=== PATIENT | male | born 1970 | race Caucasian/White ===

== ENCOUNTER 2018-05-13 12:10 | Emergency (ER) | payer OTHER ==
--- NOTE | 2018-05-13 13:08 | XRAY Report ---
Reason: Trauma Procedure Date: 05/13/2018 Accession Number: [id number] / [id number] Procedure: XR - Hand 3 View LT CPT Code: FULL RESULT: EXAM: LEFT HAND RADIOGRAPHY EXAM DATE: 05/13/2018 12:52 PM. CLINICAL HISTORY: Fall last night. Fourth finger pain. COMPARISON: None. TECHNIQUE: 3 views. FINDINGS: Bones: Acute mildly displaced avulsion fracture coronal plane, involving the anterior third base fourth middle phalanx with 2 mm offset. Joints: Normal. No subluxations. Soft Tissues: Marked edema centered at the fourth PIP joint. IMPRESSION: Large avulsion fracture base fourth middle phalanx. RADIA
--- NOTE | 2018-05-13 14:01 | ED Physician Documentation ---
PD HPI UPPER EXT INJURY - Stated complaint Stated Complaint: L HAND INJ - Chief complaint Chief Complaint: Ext Problem - History obtained from History obtained from: Patient, Family - History of Present Illness Location: Left, Finger (4th) Type of injury: Other (fall) Where injury occurred: Work Timing - onset: How many hours ago (2) Timing - details: Abrupt onset Pain level max: 5 Pain level now: 4 Improved by: Rest, Immobilization Worsened by: Moving, Palpating Associated symptoms: Swelling. No: Weakness, Numbness, Tingling Contributing factors: No: Anticoagulated Recently seen: Not recently seen - Additonal information Additional information: pt is right handed Review of Systems Musculoskeletal: denies: Neck pain, Back pain Neurologic: denies: Focal weakness, Numbness, Headache PD PAST MEDICAL HISTORY - Past Medical History Past Medical History: Yes Cardiovascular: Hypertension, High cholesterol Endocrine/Autoimmune: Type 2 diabetes - Past Surgical History Past Surgical History: Yes Ortho: Other - Present Medications Home Medications: Ambulatory Orders Medication Instructions Recorded Confirmed Blood Pressure Med 05/13/18 Glipizide 05/13/18 metFORMIN [Glucophage] 1,000 mg PO BIDWM 05/13/18 05/13/18 - Allergies Allergies/Adverse Reactions: Allergies Allergy/AdvReac Type Severity Reaction Status Date / Time No Known Drug Allergies Allergy Verified 05/13/18 12:34 - Social History Does the pt smoke?: No Smoking Status: Never smoker Does the pt drink ETOH?: Yes Does the pt have substance abuse?: No - Immunizations Immunizations are current?: Yes PD ED PE NORMAL - Vitals Vital signs reviewed: Yes - General General: Alert and oriented X 3, No acute distress - Derm Derm: Warm and dry - Extremities Extremities: Other (L hand - Diffuse swelling and tenderness about the fourth digit. Limited range of motion secondary to swelling. Neurovascularly intact. No wrist, forearm or elbow tenderness) - Neuro Neuro: Alert and oriented X 3 Results - Vitals Vitals: Vital Signs - 24 hr 05/13/18 05/13/18 12:32 14:47 Temperature 36.1 C L 36.0 C L Heart Rate 70 71 Respiratory 16 17 Rate Blood Pressure 123/84 H 120/85 H O2 Saturation 99 97 Oxygen O2 Source Room air - Rads (name of study) L hand xray Radiology: Prelim report reviewed, EMP read contemporaneously, See rad report ( Large avulsion fracture base fourth middle phalanx. ) PD MEDICAL DECISION MAKING - ED course Complexity details: reviewed results, re-evaluated patient, considered differential, d/w patient ED course: Patient is a 48-year-old male who presents with an avulsion fracture to the base of the fourth middle phalanx on the left hand. This is placed in a splint and ganesh taped. Patient tolerated well. Neurovascularly intact. No other acute injuries. Will continue supportive care and follow-up with his doctor. Will need repeat evaluation for full function of the finger after the swelling has decreased. Patient counseled regarding signs and symptoms for which I believe and urgent re-evaluation would be necessary. Patient with good understanding of and agreement to plan and is comfortable going home at this time This document was made in part using voice recognition software. While efforts are made to proofread this document, sound alike and grammatical errors may occur. L&I paperwork filled out. - Sepsis Event Vital Signs: Vital Signs - 24 hr 05/13/18 05/13/18 12:32 14:47 Temperature 36.1 C L 36.0 C L Heart Rate 70 71 Respiratory 16 17 Rate Blood Pressure 123/84 H 120/85 H O2 Saturation 99 97 Oxygen O2 Source Room air Departure - Departure Disposition: 01 Home, Self Care Clinical Impression: Finger fracture, left Qualifiers: Encounter type: initial encounter Finger: ring finger Fracture type: closed Phalanx: middle Fracture alignment: displaced Qualified Code(s): S62.625A - Displaced fracture of middle phalanx of left ring finger, initial encounter for closed fracture Condition: Good Instructions: ED Fx Finger Closed Follow-Up: your,doctor in 1 week [Other] Comments: Wear the splint until released by your doctor. Return if you worsen. You may use Motrin or Tylenol as needed for pain. You need a repeat examination in 1 week to ensure that this is healing correctly Forms: Activity restrictions Discharge Date/Time: 05/13/18 14:47
[2018-05-13 14:48] VITALS: BP 120/85
== END 2018-05-13 14:47 | disposition home or self-care (01) ==
LOC: ED 12:10
DX: S62.625A Displaced fracture of middle phalanx of left ring finger, initial encounter for closed fracture (principal); W19.XXXA Unspecified fall, initial encounter; Y99.0 Civilian activity done for income or pay
CPT/HCPCS: 99282; 99283

== ENCOUNTER 2023-02-07 10:55 | Outpatient (CLI) | payer OTHER ==
--- NOTE | 2023-02-07 15:05 | CT Report ---
PROCEDURE: ABDOMEN/PELVIS WO INDICATIONS: STONES TECHNIQUE: Noncontrast 5 mm thick sections acquired from the diaphragms to the symphysis. 5 mm coronal and sagi ttal reformats were then performed. For radiation dose reduction, the following was used: automated exposure control, adjustment of mA and/or kV according to patient size. COMPARISON: None. FINDINGS: Image quality: Excellent. Lung bases and heart: Normal heart size. Mild pericardial effusion. Right Kidney: 5 x 7 mm middle pole stone with a Hounsfield measurement of 430 Right Ureter: Unremarkable Left Kidney: 3 mm upper pole stone and 2 mm lower pole stone. No hydronephrosis. Left Ureter: Unremarkable Liver: No solid mass. Very mild diffuse hepatic steatosis. Gallbladder and biliary tree: No radiopaque stones or wall thickening. No biliary dilation. Spleen: No splenomegaly. Pancreas: No pancreatic ductal dilation. Adrenals: No adrenal nodule. Kidneys and ureters: No hydronephrosis. No renal cystic lesion which requires follow up. No solid mas s. Bowel and peritoneum: There is a mid small bowel loop present with mild to moderate diffuse bowel wal l thickening. Reference coronal image 28/6. The bowel is otherwise unremarkable. There is some fat st randing in the mesentery surrounding the vasa recta. Reference image 68/3. Lymph nodes: No central or retroperitoneal adenopathy. Vessels: No infrarenal aortic aneurysm. PELVIS Reproductive organs: Unremarkable. Bladder: No abnormal wall thickening, accounting for underdistension. Pelvic lymph nodes: No pelvic adenopathy by size criteria. Bones: No aggressive osseous abnormality. Other: No significant ventral or inguinal hernia. IMPRESSION: 1. Bilateral nonobstructing renal stones, the largest of which has a Hounsfield measurement of 430. 2. No hydronephrosis. 3. There is a single loop of small bowel with diffuse wall thickening, as well as stranding in the me senteric fat. Consider CT enterography for further evaluation of the small bowel. Reviewed by: Wes Cleary MD on 02/07/2023 3:03 PM PDT Approved by: Wes Cleary MD on 02/07/2023 3:03 PM PDT Station ID: [id number]
== END 2023-02-07 10:56 | disposition home or self-care (01) ==
LOC: DI 10:55
PROVIDERS: ATTEND Urology
DX: N20.0 Calculus of kidney (principal)

== ENCOUNTER 2023-08-14 11:00 | Outpatient (CLI) | payer OTHER | END 2023-08-14 11:15 | disposition home or self-care (01) | LOC: LAB.N 11:00 | PROVIDERS: ATTEND Family Medicine | DX: R30.0 Dysuria (principal) | CPT/HCPCS: 87086 ==

== ENCOUNTER 2023-08-16 08:56 | Outpatient (CLI) | payer OTHER ==
--- NOTE | 2023-08-16 11:04 | CT Report ---
PROCEDURE: ABDOMEN/PELVIS WO INDICATIONS: UROLITHIASIS TECHNIQUE: A CT scan of the abdomen and pelvis was performed without the use of intravenous contrast. Images we re recorded and evaluated at appropriate window settings. Reformats: coronal and sagittal. For radiat ion dose reduction, the following was used: automated exposure control, adjustment of mA and/or kV ac cording to patient size. COMPARISON: 02/07/2023. FINDINGS: Image quality: Excellent. Lung bases and heart: Small pericardial effusion, as before. Liver: No solid mass. There is a soft tissue density in the periportal region on current image 24/2 m easuring 3.0 x 2.1 cm. It is not significant changed from the previous study, and most likely represe nts a lobulated appearance of liver parenchymal tissue. Less likely is a large periportal lymph node. It is unchanged. Gallbladder and biliary tree: No radiopaque stones or wall thickening. No biliary dilation. Spleen: Mild splenomegaly. Spleen measures 13.5 cm. Pancreas: No pancreatic ductal dilation. Adrenals: No adrenal nodule. Kidneys and ureters: There is a 3 mm left ureteral stone at the level of L5 which is not resulting in hydroureter or hydronephrosis. There is a tiny nonobstructing left middle pole stone. There are 2 no nobstructing right renal stones, the larger of which measures 2 mm. There is no right hydronephrosis. Bowel and peritoneum: No bowel distension. No pathologic free fluid. Lymph nodes: No central or retroperitoneal adenopathy. Vessels: No infrarenal aortic aneurysm. PELVIS Reproductive organs: Unremarkable. Bladder: No wall thickness, accounting for underdistention. Pelvic lymph nodes: No pelvic adenopathy by size criteria. Bones: No aggressive osseous abnormality. Other: No significant ventral or inguinal hernia. IMPRESSION: 1. There is a nonobstructing 3 mm left ureteral stone at the level of L5. There is no resultant hydro nephrosis. 2. Bilateral tiny nonobstructing renal stones. 3. Small, stable pericardial effusion. 4. Mild splenomegaly. 5. A soft tissue density present on image 24/2 measuring 3.0 x 2.1 cm is not significantly changed. I t most likely represents a lobulated appearance of liver parenchymal tissue, less likely a large kisha portal lymph node. In this patient with mild splenomegaly, consider possible multiphase liver MRI to evaluate morphology of the liver and whether or not this soft tissue density is part of the liver parenchyma. Reviewed by: Wes Cleary MD on 08/16/2023 11:03 AM PST Approved by: Wes Cleary MD on 08/16/2023 11:03 AM PST Station ID: [id number]
== END 2023-08-16 08:57 | disposition home or self-care (01) ==
LOC: DI 08:56
PROVIDERS: ATTEND Family Medicine
DX: N20.9 Urinary calculus, unspecified (principal); R30.0 Dysuria; I31.39 Other pericardial effusion (noninflammatory); R16.1 Splenomegaly, not elsewhere classified; R93.5 Abnormal findings on diagnostic imaging of other abdominal regions, including retroperitoneum

== ENCOUNTER 2023-11-14 08:45 | Outpatient (CLI) | payer OTHER ==
--- NOTE | 2023-11-14 19:32 | Ultrasound Report ---
PROCEDURE: Soft Tissue Head or Neck INDICATIONS: Palpable mass TECHNIQUE: Real-time scanning was performed of the thyroid gland, with image documentation. COMPARISON: None FINDINGS: Right: Thyroid lobe measures 4.3 x 1.6 x 1.2 cm, and is homogeneous in echotexture. Left: Thyroid lobe measures 4.1 x 1.5 x 1.3 cm, and is homogenous in echotexture. Isthmus: 0.3 cm thick. No nodules identified IMPRESSION: Unremarkable ultrasound of the thyroid. If clinical symptoms persist, consider follow-up CT neck with contrast Reviewed by: Hunter Rehman MD on 11/14/2023 6:30 PM [place] Approved by: Hunter Rehman MD on 11/14/2023 6:30 PM [facility] Station ID: [id number]
== END 2023-11-14 08:46 | disposition home or self-care (01) ==
LOC: DI 08:45
PROVIDERS: ATTEND Nurse Practitioner Primary Care
DX: R22.1 Localized swelling, mass and lump, neck (principal)

== ENCOUNTER 2024-02-25 11:31 | Emergency (ER) | payer OTHER ==
[2024-02-25 13:19] LABS: BASOPHILS % (AUTO) 0.9 %; EOSINOPHILS # (AUTO) 0.1 10^3/uL (0.0-0.7); EOSINOPHILS % (AUTO) 1.5 %; HGB - HEMOGLOBIN 14.3 g/dL (14.0-18.0); LYMPHOCYTES # (AUTO) 1.2 10^3/uL (1.5-3.5); LYMPHOCYTES % (AUTO) 35.8 %; MEAN CORPUSCULAR HEMOGLOBIN 31.8 pg (27.0-31.0); MEAN CORPUSCULAR HGB CONC 33.3 g/dL (32.0-36.0); MEAN CORPUSCULAR VOLUME 95.6 fL (80.0-94.0); MEAN PLATELET VOLUME 10.5 fL (7.4-11.4); MONOCYTES # (AUTO) 0.3 10^3/uL (0.0-1.0); NEUTROPHILS # (AUTO) 1.7 10^3/uL (1.5-6.6); NEUTROPHILS % (AUTO) 52.8 %; PLT - PLATELET COUNT 189 10^3/uL (130-450); WHITE BLOOD COUNT 3.2 x10^3/uL (4.8-10.8)
[2024-02-25 13:39] LABS: ALBUMIN 4.5 g/dL (3.2-5.5); ALBUMIN/GLOBULIN RATIO 1.8 (1.0-2.2); BILIRUBIN,TOTAL 0.6 mg/dL (0.2-1.0); CALCIUM 9.8 mg/dL (8.5-10.3); CREATININE 0.9 mg/dL (0.6-1.3)
--- NOTE | 2024-02-25 15:20 | MRI Report ---
PROCEDURE: Brain WO INDICATIONS: RIGHT BODY NUMBNESS TECHNIQUE: Noncontrast axial T1 spin echo, axial T2 fast spin echo, sagittal and axial FLAIR, coronal T2 fast sp in echo, axial gradient echo, axial diffusion and ADC through the brain. COMPARISON: None. FINDINGS: Image quality: Excellent. CSF Spaces: Basal cisterns are patent. No extra-axial fluid collections. Ventricles are normal in size and shape. Brain: No intracranial masses or hemorrhage. Valdovinos/white matter interface is normal. Brainstem appe ars normal. Diffusion-weighted images demonstrate subtle restricted water diffusion focally in the l eft thalamus. Reference diffusion axial image 37 of series 12 and ADC map image 12 of series 13. This is consistent with a very small lacunar infarction of the left thalamus, possibly subacute based on very minimal signal abnormality on the diffusion-weighted sequence. There is associated trace signal abnormality on the T2 FLAIR axial sequence. There is mild to moderate small vessel ischemic change no urszula. No chronic ischemic insults. Normal intravascular flow voids are present. Skull and face: Calvarium has normal marrow signal. Orbits appear normal. Sinuses: Sinuses and mastoids are clear. IMPRESSION: 1. Tiny left thalamic lacunar infarct, possibly subacute. 2. Mild to moderate small vessel ischemic change. Reviewed by: Wes Cleary MD on 02/25/2024 3:19 PM PDT Approved by: Wes Cleary MD on 02/25/2024 3:19 PM PDT Station ID: [id number]
[2024-02-25] MEDS ORDERED: iohexoL-300 100 ML VIAL ONE (15:42)
[2024-02-25] MEDS: iohexoL-300 100 ML VIAL IVP ONE (16:24)
--- NOTE | 2024-02-25 16:41 | CT Report ---
PROCEDURE: Head WO INDICATIONS: R. FACIAL NUMBNESS TECHNIQUE: Noncontrast 4.5 mm thick angled axial sections acquired from the foramen magnum to the vertex. For r adiation dose reduction, the following was used: automated exposure control, adjustment of mA and/or kV according to patient size. COMPARISON: Brain MRI from the same date. FINDINGS: Image quality: Excellent. CSF spaces: Basal cisterns are patent. No extra-axial fluid collections. Ventricles are normal in size and shape. Brain: No midline shift. No intracranial masses or hemorrhage. Valdovinos-white matter interface is norm al. Intracranial carotid calcifications. Age-related volume loss and small vessel ischemic change. Skull and face: Calvarium and visualized facial bones are intact, without suspicious lesions. Sinuses: Visualized sinuses and mastoids are clear. IMPRESSION: No acute intracranial pathology. Reviewed by: Wes Cleary MD on 02/25/2024 4:40 PM PDT Approved by: Wes Cleary MD on 02/25/2024 4:40 PM PDT Station ID: [id number]
--- NOTE | 2024-02-25 16:42 | CT Report ---
PROCEDURE: Angio Head/Neck INDICATIONS: right facial numbness TECHNIQUE: After the administration of intravenous contrast, 1 mm thick sections acquired from the aortic arch t hrough the [place] of [place]. 3-dimensional bzohaui-ntfeekvlb-wpfyhzbqyf (MIP) and/or volume renderin g reformats were acquired of the central intracranial vasculature and neck separately. For radiation dose reduction, the following was used: automated exposure control, adjustment of mA and/or kV acco rding to patient size. CONTRAST: 80ML [id number] COMPARISON: CT head and brain MRI from the same date. FINDINGS: Image quality: Diagnostic. HEAD CT: CSF Spaces: Basal cisterns are patent. No extra-axial fluid collections. Ventricles are normal in size and shape. Brain: No significant abnormality is seen for scanning technique. Skull and face: Calvarium and visualized facial bones appear intact, without suspicious lesions. Sinuses: Visualized sinuses and mastoids are clear. HEAD CT ANGIOGRAPHY: Anterior circulation: Intracranial internal carotid arteries are normal in size and flow. The flow within the paired anterior cerebral arteries is normal and symmetric. The flow within the middle cer ebral arteries is normal and symmetric. The anterior communicating artery is seen. No aneurysms are seen. Posterior circulation: Visualized portions of the vertebral arteries demonstrate normal caliber, and join to form a normal appearing basilar artery. Flow within the posterior cerebral arteries is norm al and symmetric. No aneurysms are seen. NECK CT ANGIOGRAPHY: Carotid system: The great vessels demonstrate a conventional anatomy as they arise from the aortic a rch. The origins of the common carotid arteries appear patent. The common carotid arteries demonstr ate normal caliber and courses. The bifurcation regions are both widely patent. The internal caroti d arteries demonstrate normal calibers and courses. Posterior circulation: The origins of the vertebral arteries both appear widely patent. The more avila perior extracranial portions of both vertebral arteries also demonstrate normal courses and calibers. They join to form a normal appearing basilar artery. Soft tissues: Visualized neck soft tissues demonstrate no suspicious abnormalities. Bones: No suspicious bony lesions. Visualized cervical spine appears normally aligned. IMPRESSION: No significant intracranial arterial abnormality is seen. No significant abnormality is seen within the arteries of the neck. The estimate of stenosis included in the report of the imaging study was calculated using the NASCET method Reviewed by: Wes Cleary MD on 02/25/2024 4:41 PM PDT Approved by: Wes Cleary MD on 02/25/2024 4:41 PM PDT Station ID: [id number]
--- NOTE | 2024-02-25 17:01 | ED Physician Documentation ---
History of Present Illness - Stated complaint Stated Complaint: RT ARM PX - Chief complaint Chief Complaint: Neuro - Additonal information Additional information: see paper chart PD PAST MEDICAL HISTORY - Past Medical History Cardiovascular: Hypertension, High cholesterol Endocrine/Autoimmune: Type 2 diabetes - Past Surgical History Past Surgical History: Yes Ortho: Other - Present Medications Home Medications: Ambulatory Orders Medication Instructions Recorded Confirmed Blood Pressure Med 05/13/18 glipiZIDE [Glipizide] 05/13/18 metFORMIN [Glucophage] 1,000 mg PO BIDWM 05/13/18 05/13/18 Clopidogrel [Plavix] 75 mg PO DAILY #20 tablet 02/25/24 - Allergies Allergies/Adverse Reactions: Allergies Allergy/AdvReac Type Severity Reaction Status Date / Time No Known Drug Allergies Allergy Verified 02/25/24 13:18 - Social History Does the pt smoke?: No Smoking Status: Never smoker Does the pt drink ETOH?: Yes Does the pt have substance abuse?: No - Immunizations Immunizations are current?: Yes - POLST Patient has POLST: No Results - Vitals Vitals: Vital Signs - 24 hr 02/25/24 02/25/24 02/25/24 11:39 13:18 16:16 Temperature 36.5 C 36.9 C Heart Rate 64 65 64 Respiratory 18 18 18 Rate Blood Pressure 149/83 H 149/83 H 147/83 H O2 Saturation 100 100 100 02/25/24 02/25/24 18:00 19:51 Temperature 36 C L Heart Rate 56 L 67 Respiratory 18 16 Rate Blood Pressure 131/77 H 125/84 H O2 Saturation 100 98 Oxygen O2 Source Room air - Labs Labs: Laboratory Tests 02/25/24 02/25/24 12:32 12:32 WBC 3.2 L RBC 4.50 L Hgb 14.3 Hct 43.0 MCV 95.6 H MCH 31.8 H MCHC 33.3 RDW 13.0 Plt Count 189 MPV 10.5 Neut # (Auto) 1.7 Lymph # (Auto) 1.2 L [place] # (Auto) 0.3 Eos # (Auto) 0.1 Baso # (Auto) 0.0 Absolute Nucleated RBC 0.00 Nucleated RBC % 0.0 Sodium 138 Potassium 4.0 Chloride 106 Carbon Dioxide 21 Anion Gap 11.0 BUN 14 Creatinine 0.9 Estimated GFR (MDRD) 88 L Glucose 114 H Calcium 9.8 Total Bilirubin 0.6 AST 22 ALT 28 Alkaline Phosphatase 55 Total Protein 7.0 Albumin 4.5 Globulin 2.5 Albumin/Globulin Ratio 1.8 Lipase 37 - Rads (name of study) angio head and neck Relevant Findings:: Final report received, EMP independent interpretation of test, Other (no arterial abnormalities) head w/o Relevant Findings:: Final report received, EMP independent interpretation of test, Other (no acute intracranial abnormalities) head MRI w/o Relevant Findings:: Final report received, EMP independent interpretation of test, Other (Tiny left thalamic lacunar infarct, possibly subacute.) PD Medical Decision Making - ED course ED course: 53-year-old male presents emergency department for right mouth numbness and right arm and leg numbness. CT head without contrast was complete for further evaluation no acute intracranial abnormalities are visualized. CT head and neck angio with con was also complete for further evaluation and no intracranial or neck arterial abnormalities were seen. Brain MRI was then completed for further evaluation and patient appears to have a tiny left thalamic lacunar infarct most likely subacute with mild to moderate small vessel ischemic changes. I then consulted with telestroke neurology for further evaluation and guidance. He was suggesting possible hospitalization via note although patient is able to ambulate without any difficulty he is able to speak without any difficulty he has no unilateral weakness able to swallow without any difficulty. Patient says if he is safe enough to go home he would prefer to go home and have follow-up outpatient who he is established with. NIH score 1. Patient is already on high-dose out of her statin as well as daily aspirin he was given a loading dose of Plavix 300 mg here in the emergency department and prescription of Plavix 75 mg for the next 20 days for a total of 21 days of dual antiplatelet therapy was sent to the patient's preferred pharmacy. Patient was informed that he would benefit from an outpatient echocardiogram if he does not want to stay for hospitalization he said that he would make an appointment with his primary care provider first thing tomorrow morning. Strict ER return precautions given patient remains neurologically intact throughout entire ER visit all questions answered patient is safe for discharge at this time. Departure - Departure Disposition: 01 Home, Self Care Clinical Impression: CVA (cerebral vascular accident) Instructions: Stroke Dc, Stroke Risk Factors, ED Stroke Completed Prescriptions: Clopidogrel [Plavix] 75 mg PO DAILY #20 tablet Comments: Thank you for trusting us with your care while we evaluated you for your right- sided numbness. We completed a brain MRI which did reveal that you have a tiny thalamic lacunar infarct. This is also known as a very small stroke on the left side of your brain that affects the right side of your body. We have given you your first dose of antiplatelet medication called clopidogrel also known as Plavix here in the emergency department and you will then take 1 pill daily starting tomorrow for the next 20 days. Continue to take 81 mg of aspirin daily and follow-up with your primary care provider soon as possible for an urgent outpatient echocardiogram. If your symptoms get any worse or you start to develop any new neurological symptoms please come back to the emergency department immediately. Please call medical records tomorrow to discuss having your ER visit notes sent to your primary care provider for further evaluation. PT NAME: MITA ALVAREZ MR#: [id number] REG ER/ED AGE: 53 CI DT/TM: 02/25/24 PCP: : 1970 ATT: SEX: M ORD: Libby Pena [employer] EXAM: [id number] MRI/BRWO ([id number]) PROCEDURE: Brain WO INDICATIONS: RIGHT BODY NUMBNESS TECHNIQUE: Noncontrast axial T1 spin echo, axial T2 fast spin echo, sagittal and axial FLAIR, coronal T2 fast spin echo, axial gradient echo, axial diffusion and ADC through the brain. COMPARISON: None. FINDINGS: Image quality: Excellent. CSF Spaces: Basal cisterns are patent. No extra-axial fluid collections. Ventricles are normal in size and shape. Brain: No intracranial masses or hemorrhage. Valdovinos/white matter interface is normal. Brainstem appears normal. Diffusion-weighted images demonstrate subtle restricted water diffusion focally in the left thalamus. Reference diffusion axial image 37 of series 12 and ADC map image 12 of series 13. This is consistent with a very small lacunar infarction of the left thalamus, possibly subacute based on very minimal signal abnormality on the diffusion-weighted sequence. There is associated trace signal abnormality on the T2 FLAIR axial sequence. There is mild to moderate small vessel ischemic change noted. No chronic ischemic insults. Normal intravascular flow voids are present. Skull and face: Calvarium has normal marrow signal. Orbits appear normal. Sinuses: Sinuses and mastoids are clear. IMPRESSION: 1. Tiny left thalamic lacunar infarct, possibly subacute. 2. Mild to moderate small vessel ischemic change. Reviewed by: Wes Cleary MD on 02/25/2024 3:19 PM PDT Approved by: Wes Cleary MD on 02/25/2024 3:19 PM PDT Station ID: [id number] Forms: PCP List Discharge Date/Time: 02/25/24 19:51
[2024-02-25] MEDS: CLOPIDOGREL 300 MG TABLET PO STA (19:43)
[2024-02-25 19:52] VITALS: BP 125/84; O2SAT 98
== END 2024-02-25 19:51 | disposition home or self-care (01) ==
LOC: ED 11:31
DX: I63.9 Cerebral infarction, unspecified (principal)
CPT/HCPCS: 36415; 70450; 70496; 70498; 70551; 80053; 83690; 85025; 93005; 99284; 99285; A9270; Q9967

== ENCOUNTER 2024-05-19 11:40 | Outpatient (CLI) | payer OTHER | END 2024-05-19 11:41 | disposition critical access hospital (66) | LOC: EMS 11:40 | DX: R29.898 Other symptoms and signs involving the musculoskeletal system (principal); R41.89 Other symptoms and signs involving cognitive functions and awareness | CPT/HCPCS: A0425; A0429 ==

== ENCOUNTER 2024-05-19 12:03 | Emergency (ER) | payer OTHER ==
--- NOTE | 2024-05-19 12:14 | ED Physician Documentation ---
PD HPI FOCAL NEURO - Stated complaint Stated Complaint: AMS - History obtained from History obtained from: Patient, EMS - Additional information Additional information: 54-year-old gentleman with history of a thalamic stroke in February awoke this morning at 8 and around 9 AM felt like his right arm was cold. That lasted perhaps 2 hours and during that time he had some mild confusion. His symptoms have resolved at this point. PD PAST MEDICAL HISTORY - Past Medical History Cardiovascular: Hypertension, High cholesterol Endocrine/Autoimmune: Type 2 diabetes - Past Surgical History Past Surgical History: Yes Ortho: Other - Present Medications Home Medications: Ambulatory Orders Medication Instructions Recorded Confirmed Aspirin Chewable [St Evin 81 mg PO DAILY 05/19/24 Aspirin] Atorvastatin Calcium 40 mg PO DAILY 05/19/24 Empagliflozin [Jardiance] 25 mg PO DAILY 05/19/24 Gabapentin [Neurontin] 300 mg PO HS 05/19/24 Lisinopril [Zestril] 10 mg PO DAILY 05/19/24 Meloxicam 15 mg PO TID 05/19/24 Metformin HCl 1,000 mg PO BID 05/19/24 Tamsulosin [Flomax] 0.4 mg PO HS 05/19/24 - Allergies Allergies/Adverse Reactions: Allergies Allergy/AdvReac Type Severity Reaction Status Date / Time No Known Drug Allergies Allergy Verified 02/25/24 13:18 - Social History Does the pt smoke?: No Smoking Status: Never smoker Does the pt drink ETOH?: Yes Does the pt have substance abuse?: No - Immunizations Immunizations are current?: Yes - POLST Patient has POLST: No PD ED PE NORMAL - Vitals Vital signs reviewed: Yes - General General: Alert and oriented X 3, No acute distress - HEENT HEENT: PERRL, EOMI - Cardiac Cardiac: RRR, No murmur - Respiratory Respiratory: No respiratory distress, Clear bilaterally - Abdomen Abdomen: Non tender - Neuro Neuro: Alert and oriented X 3, stone paver 2-12 intact, No motor deficit, No sensory deficit, Normal speech Eye Opening: Spontaneous Motor: Obeys Commands Verbal: Oriented GCS Score: 15 - Psych Psych: Normal mood, Normal affect NIHSS - Time Time: 12:10 - Level of Consciousness Level of consciousness: (0) Alert, Keenly responsive LOC Questions: (0) Answers both Q's correct LOC Commands: (0) Performs both correctly - Gaze Best Gaze: (0) Normal - Visual Visual: (0) No loss - Facial Palsy Facial Palsy: (0) Normal, symmetrical movement - Motor Arms (both separate) Motor Arm (right): (0) No drift Motor Arm (left): (0) No drift - Motor Legs (both separate) Motor Leg (right): (0) No drift Motor Leg (left): (0) No drift - Limb Ataxia Limb Ataxia: (0) Absent - Sensory Sensory: (0) Normal - Best Language Best Language: (0) No aphasia - Dysarthria Dysarthria: (0) Normal - Extinction and Inattention (formally neg Extinction and inattention: (0) No abnormality - Total Score/Results Total Score/Result: 0 Results - Vitals Vitals: Vital Signs - 24 hr 05/19/24 05/19/24 05/19/24 12:11 12:41 14:33 Temperature 36.5 C Heart Rate 84 74 Respiratory 17 17 17 Rate Blood Pressure 132/92 H 113/84 H O2 Saturation 100 95 Oxygen O2 Source Room air - EKG (time done) 1213 EKG releavant findings:: EKG personally interpreted by author of this note. Relevant findings are: Rate: Rate (enter#) (78) Rhythm: NSR (w pvc) [place]: RAD Intervals: Normal SD QRS: Normal Ischemia: Normal ST segments - Labs Labs: Laboratory Tests 05/19/24 05/19/24 12:21 12:21 WBC 2.9 L RBC 4.73 Hgb 14.9 Hct 44.6 MCV 94.3 H MCH 31.5 H MCHC 33.4 RDW 12.8 Plt Count 158 MPV 9.6 Neut # (Auto) 1.8 Lymph # (Auto) 0.5 L [place] # (Auto) 0.5 Eos # (Auto) 0.0 Baso # (Auto) 0.0 Absolute Nucleated RBC 0.00 Nucleated RBC % 0.0 Manual Slide Review Indicated RBC Morph Micro Appear 1+ ANISOCYTOSIS Sodium 134 L Potassium 3.7 Chloride 103 Carbon Dioxide 21 Anion Gap 10.0 BUN 20 Creatinine 0.9 Estimated GFR (MDRD) 87 L Glucose 210 H Calcium 9.4 Total Bilirubin 0.6 AST 23 ALT 32 Alkaline Phosphatase 55 Total Protein 6.8 Albumin 4.3 Globulin 2.5 Albumin/Globulin Ratio 1.7 - Rads (name of study) cT hEAD Relevant Findings:: Final report received, EMP independent interpretation of test PD Medical Decision Making - ED course ED course: He presents with an episode of confusion this morning. He is better now. Workup demonstrates CT with only chronic findings and lab work is notable for lymphopenia and a fairly unremarkable CMP save hyperglycemia. Further history, he was having shaking chills yesterday so I do wonder if he was having a viral illness. Perhaps he had a fever this morning while he was confused? He was afebrile here. Departure - Departure Disposition: 01 Home, Self Care Clinical Impression: Confusion Condition: Good Comments: I suspect you may have a viral illness between the low white count and the shaking chills you had yesterday Call your doctor to arrange a follow-up appointment, make the next available appointment. In the interim, return anytime if worse or if new symptoms develop. Forms: PCP List Discharge Date/Time: 05/19/24 14:33
[2024-05-19 12:27] LABS: BASOPHILS % (AUTO) 0.7 %; EOSINOPHILS % (AUTO) 0.7 %; HCT - HEMATOCRIT 44.6 % (42.0-52.0); HGB - HEMOGLOBIN 14.9 g/dL (14.0-18.0); LYMPHOCYTES # (AUTO) 0.5 10^3/uL (1.5-3.5); LYMPHOCYTES % (AUTO) 18.8 %; MEAN CORPUSCULAR HEMOGLOBIN 31.5 pg (27.0-31.0); MEAN CORPUSCULAR HGB CONC 33.4 g/dL (32.0-36.0); MEAN CORPUSCULAR VOLUME 94.3 fL (80.0-94.0); MEAN PLATELET VOLUME 9.6 fL (7.4-11.4); MONOCYTES # (AUTO) 0.5 10^3/uL (0.0-1.0); MONOCYTES % (AUTO) 16.7 %; NEUTROPHILS # (AUTO) 1.8 10^3/uL (1.5-6.6); NEUTROPHILS % (AUTO) 63.1 %; PLT - PLATELET COUNT 158 10^3/uL (130-450); RED BLOOD COUNT 4.73 10^6/uL (4.70-6.10); RED CELL DISTRIBUTION WIDTH 12.8 % (12.0-15.0); WHITE BLOOD COUNT 2.9 x10^3/uL (4.8-10.8)
[2024-05-19 12:28] LABS: RBC MORPHOLOGY (MULTIPLE) 1+ ANISOCYTOSIS (NORMAL); SLIDE REVIEW? Indicated
[2024-05-19 12:40] LABS: ALBUMIN 4.3 g/dL (3.2-5.5); ALBUMIN/GLOBULIN RATIO 1.7 (1.0-2.2); BILIRUBIN,TOTAL 0.6 mg/dL (0.2-1.0); CALCIUM 9.4 mg/dL (8.5-10.3); CREATININE 0.9 mg/dL (0.6-1.3); POTASSIUM 3.7 mmol/L (3.5-4.5); TOTAL PROTEIN 6.8 g/dL (6.4-8.9)
--- NOTE | 2024-05-19 13:19 | CT Report ---
PROCEDURE: Head WO INDICATIONS: cva sx TECHNIQUE: Noncontrast 4.5 mm thick angled axial sections acquired from the foramen magnum to the vertex. For r adiation dose reduction, the following was used: automated exposure control, adjustment of mA and/or kV according to patient size. COMPARISON: None. FINDINGS: Image quality: Excellent. CSF spaces: Basal cisterns are patent. No extra-axial fluid collections. Ventricles are normal in size and shape. Brain: No midline shift. No intracranial masses or hemorrhage. Valdovinos-white matter interface is norm al. Ischemic changes are present. Skull and face: Calvarium and visualized facial bones are intact, without suspicious lesions. Sinuses: Visualized sinuses and mastoids are clear. IMPRESSION: 1. No acute intracranial process. 2. Moderate atrophy and chronic microvascular ischemic changes. Reviewed by: Evelyn Tamayo MD on 05/19/2024 1:18 PM PDT Approved by: Evelyn Tamayo MD on 05/19/2024 1:18 PM PDT Station ID: [id number]
[2024-05-19 14:38] VITALS: BP 113/84; O2SAT 95
== END 2024-05-19 14:33 | disposition home or self-care (01) ==
LOC: EDUNIT# → ED 12:03
DX: R41.0 Disorientation, unspecified (principal); R68.83 Chills (without fever)
CPT/HCPCS: 36415; 80053; 85025; 93005; 99283; 99284